=== PATIENT | female | born 1945 | race Caucasian/White ===

== ENCOUNTER 2017-12-16 11:04 | Outpatient (CLI) | payer MEDICARE, BC ==
[~2017-12-16] VITALS: Ht 172.7 cm; Wt 86.4 kg
--- NOTE | ~2017-12-16 | HEMODYNAMI ---
PATIENT:CASTILLO TOVAR MEDICAL RECORD: [id number] : 47 LOCATION:[facility] ADMISSION DATE: 12/16/17 Generatedon:12/16/201713:34 Patient name: CASTILLO TOVAR Patient #: [id number] SSN: DO B: 1945 Date of study: 12/16/2017 Page: Of Hemodynamic Procedure Report Patient Data Patient Demographics Procedure consent was obtained First Name: CASTILLO Gender: Female Last Name: [place] : 1945 Middle Initial: B Age: 72 year(s) Patient #: [id number] Race: Unknown Additional ID: [id number] Contact details [address]: [address] [place] [address] State: [place] City: [place] Zip code: [address] Past Medical History Allergies Allergen Reaction Date Comments Reported Other allergy 12/16/2017 PCN Admission Admission Data Admission Date: 12/16/2017 Admission Time: 11:04 Height (in.): 69 BSA: 1.97 (m2) Height (cm.): 175.26 BMI: 26.43 (kg/m2) Weight (lbs.): 179 Weight (kg.): 81.19 Procedure Procedure Types Cath Procedure Diagnostic Procedure Cardioversion External Procedure Description Procedure Date Procedure Date: 12/16/2017 Procedure Start Time: 13:20 Procedure End Time: 13:29 Procedure Staff Name Function Jed Peace MD Performing Physician Levi Davis MD Additional personnel Fara Kumari RT Monitor Torres Jeffery RN Nurse Tahira Lee RT Monitor Procedure Data Cath Procedure Estimated blood loss: 0 ml Procedure Complications No complications Procedure Medications Medication Administration Route Dosage Oxygen etCO2 Nasal cannula 6 l/min 0.9% NaCl I.V. 100 ml/hr Refer to Anesthesia Notes for Sedation Medications Hemodynamics Rest BSA: 1.97 (m2) O2 Consumption: Estimated: 187.25 (ml/min) O2 Consumption indexed : Estimated:95.05 (ml/min/m) Heart Rate: 78 (bpm) Snapshots Pre Cath Intra NCS Post Cath Vital Signs Time Heart Resp SPO2 etCO2 NIBP (mmHg) Rhythm Pain Sedation Rate (ipm) (%) (mmHg) Status Level (bpm) 12:55:57 91 17 97 27 145/79(130) NSR 0 (11) 10(A) , No pain 13:00:11 89 16 97 37.5 147/98(123) NSR 0 (11) 10(A) , No pain 13:04:23 86 17 96 39 140/98(110) NSR 0 (11) 10(A) , No pain 13:08:36 82 17 97 37.5 138/93(119) NSR 0 (11) 10(A) , No pain 13:12:47 93 17 97 32.2 149/97(116) NSR 0 (11) 10(A) , No pain 13:16:59 96 16 97 40.5 142/94(115) NSR 0 (11) 10(A) , No pain 13:21:13 85 17 97 23.2 141/88(127) NSR 0 (11) 9(A) , No pain 13:25:23 58 16 88 12.7 125/71(99) NSR 0 (11) 9(A) , No pain 13:30:53 68 17 95 30 110/47(98) NSR 0 (11) 9(A) , No pain Medications Time Medication Route Dose Verified Delivered Reason Notes Effective ness by by 13:10:20 Oxygen etCO2 6 Jed Macdonald Per Nasal l/min Kobi Jeffery RN physician cannula 13:10:30 0.9% NaCl I.V. 100 Jeddorie Macdonald Per ml/hr Kobi Jeffery RN physician 13:10:36 Refer to Jed Macdonald Per Anesthesia Kobi Jeffery RN physician Notes for Sedation Medications Procedure Log Time Note 12:46:11 Patient Height : 69 inches 12:46:17 Patient Weight : 179 lbs 12:48:45 Diagnostic Cath status Elective 12:48:48 Torres Jeffery RN sent for patient. Start room use. 12:48:50 Time tracking: Regular hours (M-F 7:00 - 5:00) 12:48:56 Plan of Care:Hemodynamics will remain stable., Cardiac rhythm will remain stable., Comfort level will be maintained., Respiratory function will remain adequate., Patient/ family verbilizes understanding of procedure., Procedure tolerated without complication., Recovers from procedure without complications.. 12:49:09 Patient received from Pre/Post Procedure Room to CCL 3 Alert and oriented. Tansferred to table in Supine position. 12:49:10 Warm blankets applied, and juan j hugger turned on for patient comfort. 12:49:10 Correct patient and procedure confirmed by team. 12:49:12 Signed procedure consent form obtained from patient. 12:49:30 H&P Date Dictated: 12/02/2017 Within 30 days and on chart., H&P Addendum completed by physician on day of procedure. (MUST COMPLETE FOR ALL OUTPATIENTS). 12:49:31 Pre-procedure instructions explained to patient. 12:49:35 Family in waiting room. 12:49:37 Patient NPO since Midnight. 12:49:51 Patient allergic to Other allergyPCN 12:49:56 Is the patient allergic to Iodine/contrast media? No. 12:50:03 Is patient on blood thinner?Yes 12:54:53 Vital chart was started 12:58:22 ACC The patient was administered the following blood thiners within the last 24 hours: ACCAspirin, Eliquis 12:58:24 Patient diabetic? No. 12:58:29 Previous problem with sedation/anesthesia? No ? 12:58:30 Snore? Yes 12:58:32 Sleep apnea? No 12:58:42 Dentures? No ? 12:58:53 IV patent on arrival in left forearm with 0.9% NaCl at KVO. 12:58:59 Lab results completed and on chart. 12:59:06 Alarms reviewed by R. N. 12:59:08 Sharps counted by scrub and verified by R.N. 13:01:01 Sharps counted by scrub and verified by R.N. 13:10:20 Oxygen 6 l/min etCO2 Nasal cannula was administered by Torres Jeffery RN; Per physician; 13:10:30 0.9% NaCl 100 ml/hr I.V. was administered by Torres Jeffery RN; Per physician; 13:10:36 Refer to Anesthesia Notes for Sedation Medications was administered by Torres Jeffery RN; Per physician; 13:16:24 Physician paged 13:16:25 Physician arrived 13:16:26 --------ALL STOP TIME OUT------ 13:16:27 Final Timeout: patient, procedure, and site verified with staff and physician. All members of the team are in agreement. 13:16:37 Physical assessment completed. ASA score P 2 - A patient with mild systemic disease as per Jed Peace MD. 13:16:45 Sedation plan: TIVA Medication:Propofol 13:16:49 Levi Davis MD present and monitoring patient for TIVA. 13:17:12 Quick Combo opened to sterile field. 13:17:15 Quick combo pads placed on patients chest and back. 13:19:02 Baseline sample Acquired. 13:20:27 Procedure started. 13:20:28 Full Disclosure recording started 13:23:20 Defibrillator synced and charged to 200 Joules. 13:23:29 Shock delivered. 13:23:54 Patient cardioverted to sinus rhythm . 13:24:09 Procedure ended.(Physican Out) 13:28:32 Post-procedure physical assessment completed. ASA score P 2 - A patient with mild systemic disease as per Jed Peace MD. 13:28:34 Post procedure rhythm: sinus rhythm 13:28:37 Estimated blood loss: 0 ml 13:28:59 Post procedure instruction explained to patient.Patient verbalizes understanding. 13:29:00 Patient needs reinforcement of post procedure teaching. 13:29:18 Procedure and supply charges have been captured, reviewed, submitted and are correct. 13:29:21 Procedure Complication : No complications 13:29:23 Vital chart was stopped 13:29:25 See physician's report for complete and final results. 13:29:27 Report given to Pre/Post Procedure Room. 13:29:30 Patient transfered to Pre/Post Procedure Room with Bed. 13:29:32 Procedure ended. 13:29:32 Full Disclosure recording stopped 13:29:35 End room use (Document Last) Device Usage Item Manufacture Quantity Catalog Hospital Part Current Minimal Lot# / Name Number Charge Number Stock Stock Azael stearns# Code [employer]ure[employer]or[employer] 1 [id number] Combo Signature Audit [place] Stage Time Signature Unsigned Intra-Procedure 12/16/2017 Tahria Lee 1:34:21 PM RT(R) Signatures Monitor : Fara Quoc Signature : RT Date : Time : Monitor : Tahira Lee Signature : RT Date : Time : [address] [place] [address]
[2017-12-16] MEDS ORDERED: CARTIA XT180 MG PO (12:15)
[2017-12-16] MEDS ORDERED: BETAPACE 80 MG80 MG PO (12:16)
[2017-12-16] MEDS ORDERED: PEPCID20 MG PO (12:16)
[2017-12-16] MEDS ORDERED: ELIQUIS5 MG PO (12:17)
[2017-12-16] MEDS ORDERED: BAYER CHEWABLE81 MG PO (12:17)
[2017-12-16 12:27] VITALS: BP 142/92; Ht 172.7 cm; Wt 86.4 kg
[2017-12-16 13:07] LABS: CALC OSMOLALITY 279 mosm/kg (275-300); CALCIUM 9.4 mg/dL (8.5-10.1); CARBON DIOXIDE 27.4 mmol/L (21.0-32.0); CHLORIDE - SERUM 103 mmol/L (98-107); CREATININE - SERUM 0.7 mg/dL (0.6-1.3); GLUCOSE 95 mg/dL (74-106); POTASSIUM - SERUM 3.5 mmol/L (3.5-5.1); SODIUM 140 mmol/L (136-145); UREA NITROGEN 15 mg/dL (7-18); eGFR NON AFRICAN AMERICAN 87 mL/min (90-120)
[2017-12-16 13:08] LABS: INR 1.2 (0.85-1.17); PROTIME 14.8 SECONDS (11.6-15.0)
[2017-12-16 13:55] LABS: T4 THYROXIN - FREE 1.2 ng/dL (0.76-1.46); THYROID STIMULATING HORMONE 1.42 uIU/mL (0.36-3.74)
[2017-12-16 14:05] LABS: BASOPHILS 0.5 % (0-2); EOSINOPHILS 1.4 % (0-7); HEMATOCRIT 39.6 % (36.0-48.0); HEMOGLOBIN 13.6 g/dL (12-16); IMMATURE GRANULOCYTES 0.1 % (0-5); LYMPHOCYTES 23.6 % (15-50); MCH 29.4 pg (26.0-34.0); MCHC 34.3 g/dL (31.0-37.0); MCV 85.5 fL (80.0-100.0); MEAN PLATELET VOLUME 10.4 fL (7.4-10.4); MONOCYTES 9.4 % (2-11); PLATELET COUNT 311 10x3/uL (130-400); RBC 4.63 10x6/uL (4.00-5.40); RDW 13.5 % (11.5-14.5)
== END 2017-12-16 15:36 ==
LOC: D.CATH 11:04
PROVIDERS: Internal Medicine Cardiovascular Disease
DX: I48.91 Unspecified atrial fibrillation (principal); I10 Essential (primary) hypertension; K21.9 Gastro-esophageal reflux disease without esophagitis; Z01.812 Encounter for preprocedural laboratory examination

== ENCOUNTER 2018-02-04 08:32 | Emergency (ER) | payer OTHER, MEDICARE, BC ==
[~2018-02-04 08:32] MED LIST: BAYER CHEWABLE81 MG PO; BETAPACE 80 MG80 MG PO; CARTIA XT180 MG PO; ELIQUIS5 MG PO; PEPCID20 MG PO
[2018-02-04 08:37] VITALS: BP 173/60; Ht 172.7 cm
[2018-02-04] MEDS ORDERED: CYCLOBENZAPRINE10 MG PO (09:42)
== END 2018-02-04 10:53 | disposition home or self-care (01) ==
LOC: D.ER 08:32
DX: S16.1XXA Strain of muscle, fascia and tendon at neck level, initial encounter (principal); V43.62XA Car passenger injured in collision with other type car in traffic accident, initial encounter; Y93.89 Activity, other specified; Y92.410 Unspecified street and highway as the place of occurrence of the external cause; S40.812A Abrasion of left upper arm, initial encounter; S40.811A Abrasion of right upper arm, initial encounter; I10 Essential (primary) hypertension; K21.9 Gastro-esophageal reflux disease without esophagitis

== ENCOUNTER 2018-04-19 07:54 | Emergency (ER) | payer MEDICARE, BC ==
[~2018-04-19] VITALS: Ht 172.7 cm; Wt 85.5 kg
[~2018-04-19 07:54] MED LIST changes: +CYCLOBENZAPRINE10 MG PO
[2018-04-19 07:59] VITALS: Ht 172.7 cm; Wt 85.5 kg
[2018-04-19] MEDS ORDERED: ACETAMINOPHEN500 M1 PO (10:46)
[2018-04-19] MEDS ORDERED: CYCLOBENZAPRINE10 MG PO (10:46)
[2018-04-19 10:57] VITALS: BP 148/77
== END 2018-04-19 11:05 | disposition home or self-care (01) ==
LOC: D.ER 07:54
DX: S40.011A Contusion of right shoulder, initial encounter (principal); W18.31XA Fall on same level due to stepping on an object, initial encounter; Y93.89 Activity, other specified; Y92.238 Other place in hospital as the place of occurrence of the external cause; M25.511 Pain in right shoulder; I10 Essential (primary) hypertension; I48.91 Unspecified atrial fibrillation

== ENCOUNTER 2018-10-09 18:04 | Outpatient (CLI) | payer MEDICARE, BC ==
[2018-04-19 07:59] VITALS: BMI 28.6
[~2018-10-09 18:04] MED LIST changes: +ACETAMINOPHEN500 M1 PO
== END 2018-10-09 18:06 | disposition home or self-care (01) ==
LOC: D.MAMMO 18:04
PROVIDERS: ATTEND Family Medicine
DX: Z12.31 Encounter for screening mammogram for malignant neoplasm of breast (principal)

== ENCOUNTER 2018-12-19 23:36 | Emergency (ER) | payer MEDICARE, BC ==
[~2018-12-19] VITALS: Ht 172.7 cm; Wt 86.4 kg
[2018-12-19 23:40] VITALS: Ht 172.7 cm; Wt 86.4 kg
[2018-12-20 00:21] LABS: BASOPHILS 0.4 % (0-2); EOSINOPHILS 2.2 % (0-7); HEMATOCRIT 38.3 % (36.0-48.0); HEMOGLOBIN 12.8 g/dL (12-16); IMMATURE GRANULOCYTES 0.3 % (0-5); LYMPHOCYTES 25.4 % (15-50); MCH 29.3 pg (26.0-34.0); MCHC 33.4 g/dL (31.0-37.0); MCV 87.6 fL (80.0-100.0); MEAN PLATELET VOLUME 9.5 fL (7.4-10.4); MONOCYTES 11.4 % (2-11); NEUTROPHILS 60.3 % (40-80); PLATELET COUNT 312 10x3/uL (130-400); RBC 4.37 10x6/uL (4.00-5.40); RDW 13.5 % (11.5-14.5); WBC 9.7 10x3/uL (4.8-10.8)
[2018-12-20 00:29] LABS: ANION GAP 9.2 mmol/L (8-16); CALCIUM 9.2 mg/dL (8.5-10.1); CARBON DIOXIDE 29.4 mmol/L (21.0-32.0); CREATININE - SERUM 0.8 mg/dL (0.6-1.3); POTASSIUM - SERUM 3.6 mmol/L (3.5-5.1)
[2018-12-20 00:36] LABS: APTT 25.8 SECONDS (22.8-39.4); INR 1.05 (0.85-1.17); PROTIME 13.2 SECONDS (11.6-15.0)
[2018-12-20] MEDS ORDERED: ROBAXIN500 MG PO (01:01)
[2018-12-20 01:52] VITALS: BP 172/82
== END 2018-12-20 01:52 | disposition home or self-care (01) ==
LOC: D.ER 23:36
PROVIDERS: Emergency Medicine
DX: S02.2XXA Fracture of nasal bones, initial encounter for closed fracture (principal); W18.30XA Fall on same level, unspecified, initial encounter; Y92.89 Other specified places as the place of occurrence of the external cause; S80.11XA Contusion of right lower leg, initial encounter

== ENCOUNTER 2019-05-29 12:16 | Inpatient (IN) | payer MEDICARE, BC ==
[~2019-05-29] VITALS: Ht 172.7 cm; Wt 72.7 kg
[~2019-05-29 12:16] MED LIST changes: +ROBAXIN500 MG PO
[2019-05-29 13:27] LABS: BASOPHILS 0.3 % (0-2); EOSINOPHILS 1.6 % (0-7); HEMATOCRIT 43.3 % (36.0-48.0); HEMOGLOBIN 13.9 g/dL (12-16); IMMATURE GRANULOCYTES 0.3 % (0-5); LYMPHOCYTES 26.5 % (15-50); MCH 28.8 pg (26.0-34.0); MCHC 32.1 g/dL (31.0-37.0); MCV 89.8 fL (80.0-100.0); MEAN PLATELET VOLUME 9.7 fL (7.4-10.4); MONOCYTES 9.6 % (2-11); NEUTROPHILS 61.7 % (40-80); PLATELET COUNT 402 10x3/uL (130-400); RBC 4.82 10x6/uL (4.00-5.40); RDW 13.5 % (11.5-14.5); WBC 9.3 10x3/uL (4.8-10.8)
[2019-05-29 13:40] LABS: CALC OSMOLALITY 279 mosm/kg (275-300); CALCIUM 9.9 mg/dL (8.5-10.1); CARBON DIOXIDE 29.4 mmol/L (21.0-32.0); CHLORIDE - SERUM 103 mmol/L (98-107); CREATININE - SERUM 0.8 mg/dL (0.6-1.3); GLUCOSE 96 mg/dL (74-106); POTASSIUM - SERUM 3.6 mmol/L (3.5-5.1); SODIUM 139 mmol/L (136-145); UREA NITROGEN 17 mg/dL (7-18); eGFR NON AFRICAN AMERICAN 75 mL/min (90-120)
[2019-05-29 14:03] LABS: ALBUMIN 3.8 g/dL (3.4-5.0); ALKALINE PHOSPHATASE 111 U/L (46-116); ALT (SGPT) 21 U/L (10-68); BILIRUBIN - TOTAL 0.38 mg/dL (0.2-1.3); CKMB 1.9 U/L (0.0-3.6); CREATINE KINASE 91 UL (21-215); PRO BNP 1835 pg/mL (0-125); PROTEIN - SERUM 8.7 g/dL (6.4-8.2); TROPONIN-I < 0.017 ng/mL (0.000-0.060)
[2019-05-29 14:34] VITALS: BP 103/69
[2019-05-29] MEDS ORDERED: NORVASC10 MG PO (16:59)
--- NOTE | 2019-05-29 17:04 | NUR ---
RECIVED FROM ER PER WC TO ROOM 2123. RT AC IV WITH CARDZEM AT 10MG AN HOUR, ADMIT ASSESSMENT PER RN
[2019-05-29 17:13] VITALS: BP 142/78; BMI 24.3
[2019-05-29 20:00] VITALS: BP 116/70
--- NOTE | 2019-05-29 22:29 | NUR ---
INITIAL ROUNDS COMPLETED AT 1910 HRS. PT DENIED ANY DISCOMFORT. ASSESSMENT COMPLETED AT 1950 HRS. VSS. CAF PER CM HR 69. ALERT AND ORIENTED TO PERSON, PLACE AND TIME. LALA. IV TO RAC WITH CARDIZEM AT 10MG/HR (10CC/HR). IV PATENT. LUNGS CTA. PM MED GIVEN. PT CURRENTLY VISITING WITH FAMILY. SR UP X2, CALL LIGHT WITHIN REACH.
--- NOTE | 2019-05-29 23:35 | NUR ---
PT READING A BOOK. DENIES ANY DISCOMFORT. CALL LIGHT WITHIN REACH.
[2019-05-30] VITALS: BP 106/68
--- NOTE | 2019-05-30 02:13 | NUR ---
PT READING A BOOK. NO DISTRESS NOTED. CALL LIGHT WITHIN REACH.
[2019-05-30 04:00] VITALS: BP 102/62
--- NOTE | 2019-05-30 04:28 | NUR ---
PT RESTING WITH EYES CLOSED. RESP EVEN AND REGULAR. SR UP X1, CALL LIGHT WITHIN REACH.
[2019-05-30 05:44] LABS: BASOPHILS 0.6 % (0-2); EOSINOPHILS 3.1 % (0-7); HEMATOCRIT 35.9 % (36.0-48.0); HEMOGLOBIN 11.6 g/dL (12-16); IMMATURE GRANULOCYTES 0.2 % (0-5); LYMPHOCYTES 42.7 % (15-50); MCH 28.9 pg (26.0-34.0); MCHC 32.3 g/dL (31.0-37.0); MCV 89.5 fL (80.0-100.0); MEAN PLATELET VOLUME 9.7 fL (7.4-10.4); MONOCYTES 13.1 % (2-11); NEUTROPHILS 40.3 % (40-80); RBC 4.01 10x6/uL (4.00-5.40); RDW 13.7 % (11.5-14.5)
--- NOTE | 2019-05-30 05:45 | NUR ---
PT AWAKE; DENIES ANY DISCOMFORT. CALL LIGHT WITHIN REACH.
[2019-05-30 06:04] LABS: ANION GAP 10.7 mmol/L (8-16); BILIRUBIN - TOTAL 0.36 mg/dL (0.2-1.3); CALCIUM 8.5 mg/dL (8.5-10.1); CARBON DIOXIDE 27.8 mmol/L (21.0-32.0); CREATININE - SERUM 0.8 mg/dL (0.6-1.3); PLATELET COUNT 319 10x3/uL (130-400); POTASSIUM - SERUM 3.5 mmol/L (3.5-5.1); PROTEIN - SERUM 6.9 g/dL (6.4-8.2); WBC 6.5 10x3/uL (4.8-10.8)
--- NOTE | 2019-05-30 07:00 | NUR ---
RECEIVED REPORT. ASSUMED CARE OF PATIENT. PATIENT SITTING UP IN BED WITH ATTENTION TOWARD THE TELEVISION. CARDIZEM DRIP INFUSING ORDERED. CALL LIGHT WITHIN REACH. NO DISTRESS. DENIES NEEDS.
[2019-05-30 09:04] VITALS: BP 109/61
--- NOTE | 2019-05-30 09:07 | NUR ---
HER FOR AM ROUNDS AND AFTER PATIENT HAS AN ECHO, SHE CAN GO HOME AND WILL RETURN ON SATURDAY FOR CARDIOVERSION.
[2019-05-30 09:10] VITALS: Ht 172.7 cm; Wt 72.7 kg
--- NOTE | 2019-05-30 09:41 | HP ---
PATIENT: CASTILLO TOVAR MEDICAL RECORD: [id number] ACCOUNT: [id number] LOCATION:[address] : 47 ADMISSION DATE: 05/29/19 PCP: LUDWIN URIOSTEGUI MD HISTORY AND PHYSICAL EXAMINATION DATE OF ADMISSION: 05/29/2019 CHIEF COMPLAINT: Tachycardia. HISTORY OF PRESENT ILLNESS: This is a 73-year-old female with a known history of paroxysmal atrial fibrillation requiring cardioversion early last year. She states she has been doing well for a long time and over the last 2-3 days has had increased episodes of tachycardia with rates up to 120. She called Dr. Peace's office and was referred to the ER. She states her heart rate has gotten up to as high as 120. She has an irregularly irregular heart rate. She is admitted for further evaluation of her paroxysmal atrial fibrillation. PAST MEDICAL HISTORY: 1. Paroxysmal atrial fibrillation, followed by Dr. Peace. 2. Hyperlipidemia. 3. Hypertension. PAST SURGICAL HISTORY: D&C. ALLERGIES: PENICILLIN. HOME MEDICATIONS: Include amlodipine 10 mg once a day (has been on that for a couple of months, changing from diltiazem), aspirin 81 mg once a day, Pepcid 40 mg once a day, and sotalol 80 mg twice a day. SOCIAL HISTORY: , retired. HABITS: Never smoked. No alcohol or drugs. FAMILY HISTORY: Father at 69. He had leukemia and lung cancer. Mother at 92 of a stroke. She had an arrhythmia. REVIEW OF SYSTEMS: GENERAL: No major weight changes. HEENT: No particular sinus or allergy problems. RESPIRATORY: No history of asthma or emphysema. No cough, wheeze, shortness of breath. CARDIAC: See above history. GASTROINTESTINAL: Has a little heartburn. GENITOURINARY: No significant problems there. MUSCULOSKELETAL: No significant problems there. NEUROLOGIC: No migraines or seizure activity. PSYCHIATRIC: Denies depression or melancholia. PHYSICAL EXAMINATION: VITAL SIGNS: Temperature 98.1, pulse 74, respirations 18, blood pressure 142/78, and O2 sat 96%. GENERAL: She does not appear in acute distress. She is awake and alert. HEART: Irregularly irregular, but controlled rate. LUNGS: Fairly clear. HISTORY AND PHYSICAL [id number] CASTILLO TOVAR ABDOMEN: Soft. EXTREMITIES: No edema. NEUROLOGIC: Unremarkable. LABORATORY DATA: CBC with a white count of 9300, hemoglobin 13.9, and hematocrit 43.3. Basic metabolic panel is all okay. ProBNP 1835. Troponin less than 0.017. Chest x-ray shows no acute process. EKG showed atrial fibrillation with rate in the low 100s. ASSESSMENT: 1. Atrial fibrillation with rapid ventricular response. 2. History of hypertension. PLAN: She is admitted, placed on telemetry, started on Cardizem drip. Cardiology has been consulted. Other tests or procedures as warranted. We will start Lovenox. TRANSINT:[id number] Voice Confirmation ID: [id number] DOCUMENT ID: [id number] LUDWIN URIOSTEGUI MD at 0941 CC: [id number] DICTATION DATE: 05/29/191745 APPRENTICESHIP TRAINING REPRESENTATIVE: 05/29/192003 ADM IN [facility] [address] [place] [address]
[2019-05-30] MEDS ORDERED: ELIQUIS5 MG PO (09:50)
--- NOTE | 2019-05-30 13:54 | NUR ---
MINING HELPER AT BEDSIDE AT THIS TIME TO COMPLETE ECHO ORDERED THIS AM AND THEN PATIENT CAN DISCHARGE TO HOME.
--- NOTE | 2019-05-30 14:10 | NUR ---
20 GAUGE IV REMOVED FROM RIGHT AC AREA. CATHETER TIP INTACT. NO BLEEDING FROM SITE. 2X2 GAUZE APPLIED AND SECURED WITH TAPE. TOELRTATED IV REMOVAL WELL PT IS BEING DISCHARGED TO HOME.
--- NOTE | 2019-05-30 14:28 | NUR ---
DISCHARGE INSTRUCTIONS PROVIDED TO PATIENT. PT VERBALIZED UNDERSTANDING OF ALL INSTRUCTIONS PROVIDED. PATIENT HAS 5 BOXES OF SAMPLES FROM OF [facility] THAT SHE IS TAKING HOME WITH HER. PATIENT GETTING DRESSED AT THIS TIME.
--- NOTE | 2019-05-30 15:02 | NUR ---
PATIENT LEFT UNIT VIA WHEELCHAIR AT THIS TIME WITH ALL PERSONAL BELONGINGS. PATIENT DISCHARGED TO HOME IN NO DISTRESS.
--- NOTE | 2019-06-03 14:07 | CN ---
PATIENT NAME:CASTILLO KILLIAN MEDICAL RECORD: [id number] : 47 LOCATION:. D.2123 ADMIT DATE: 05/29/19 ACCOUNT: [id number] CONSULTING PHYSICIAN: OMKAR YANES MD REFERRING PHYSICIAN: RONEN DAMON MD DATE OF CONSULTATION: 05/30/2019 DIAGNOSES: 1. Atrial fibrillation. 2. Palpitations. 3. Hypertension. HISTORY OF PRESENT ILLNESS: Ms. Killian presents with palpitations, found to be in atrial fibrillation. She has a history of atrial fibrillation. It was in conjunction with pneumonia in November of 2017. She underwent cardioversion at that time. Has been on sotalol since. She has had no real inciting episode or illness that would cause recurrent atrial fibrillation. She had no chest pain. No chest discomfort. No real shortness of breath. She just felt palpitations. Thought she was back in atrial fibrillation. Presents to the Emergency Room. She is back in atrial fibrillation. Her rate is controlled in the 70s and 80s, on her sotalol. PHYSICAL EXAMINATION: CONSTITUTIONAL/GENERAL APPEARANCE: Well nourished, well developed, appears stated age. EYES: Lids and conjunctivae noninjected. No discharge. No pallor. ENT: Lips within normal limit. No cyanosis. No pallor. NECK: Carotid arteries, bilateral normal upstroke. No bruits. No thrills. No jugular venous pressure or distention. CERVICAL LYMPH NODES: Nontender. Nonenlarged. THYROID: Not enlarged. No nodules. CARDIOVASCULAR: Precordial exam, nondisplaced. No heaves or pericardial thrills. Rate and rhythm, regular. Heart sounds, normal S1, normal S2. No S3, no gallop, no rub. Systolic murmur, not heard. Diastolic murmur, not heard. RESPIRATORY: Respiratory effort, unlabored. Normal curvature. No thoracic deformity. No chest wall tenderness. Percussion, resonant. Auscultation, clear. No wheezes, no rales, no rhonchi. ABDOMEN: Soft, nondistended, nontender. No abdominal pain, no vomiting and normal appetite. MUSCULOSKELETAL: No joint tenderness, normal gait, normal tone. SKIN: Warm and dry. OVERALL IMPRESSION: Atrial fibrillation. At this time, we will start her on Eliquis. Can discharge home. We will plan for cardioversion early next week if she remains in atrial fibrillation. TRANSINT:[id number] Voice Confirmation ID: [id number] DOCUMENT ID: [id number] CONSULT REPORT [id number] CASTILLO KILLIAN JEFFREY MD at 1407 CC: [id number] DICTATION DATE: 05/30/19911 CUSTOMER PROGRAM MANAGER: 05/30/19923 DIS IN 05/30/19 [place] [id number]
--- NOTE | 2019-06-03 14:07 | EC ---
PATIENT:CASTILLO TOVAR DATE OF SERVICE: 05/29/19 SEX: F MEDICAL RECORD: [id number] DATE OF : 47 LOCATION:D. D.212 AGE OF PATIENT: 73 ADMISSION DATE: 05/29/19 REFERRING PHYSICIAN: INTERPRETING PHYSICIAN: OMKAR JACKSON MD ECHOCARDIOGRAM REPORT ECHO CHARGES 4 ECHO COMPLETE Date: 05/30/19 CLINICAL DIAGNOSIS: ATRIAL FIB ECHOCARDIOGRAPHIC MEASUREMENTS (adult normal given) AC root (d.<3.7cm) 3.3 cm LV Septum d (<1.2 cm> 1.5 cm Valve Excursion 1.5 cm LV Septum (systole) 1.6 cm Left Atria (s.<4.0cm> 4.0 cm LVPW d(<1.2cm) 1.3 cm RV (d.<2.3cm) 4.0 cm LVPW (sytole) 1.6 cm LV diastole(<5.6CM) 4.9 cm MV E-F(>70mm/sec) cm LV systole 3.5 cm LVOT Diameter 2.0 cm MV exc.(>10mm) 1.5 cm Est.ejection fraction (50-75%) % DOPPLER: LVIT cm/sec A cm/sec E 97.0 cm/sec LA cm/sec RVSP 31 mmHg LVOT 128 cm/sec AOP1/2T m/s Asc. Ao 177 cm/sec RVOT 66 cm/sec RA cm/sec PA 90 cm/sec AV Gradient Peak 12.49mmHg AV Mean 6.47 mmHg AV Area 2.5 cm MV Gradient Peak 5.94 mmHg MV Mean 2.04 mmHg MV Area cm COMMENTS: Mail Distribution Scheme Examiner: Robin RODRIGUEZ Electrician Helper: 1 Dr. Jackson TAPE# PACS Pericardial Effusion N DATE OF SERVICE: 05/30/2019 Echocardiogram FINDINGS: 1. Left ventricular chamber size is within normal limits. Left ventricular systolic function is normal at 55% to 60%. 2. Left atrium is enlarged at 4.0 cm. Right atrium and right ventricular chamber sizes are as well mildly dilated. 3. Valvular structures have normal structure and motion. ECHOCARDIOGRAM REPORT [id number] CASTILLO TOVAR 4. Doppler interrogation reveals mild mitral regurgitation, mild tricuspid regurgitation, no other valvular insufficiency or stenosis. Pulmonary systolic pressure estimated at 31 mmHg. 5. No evidence of pericardial effusion or left ventricular thrombus. TRANSINT:[id number] Voice Confirmation ID: [id number] DOCUMENT ID: [id number] OMKAR JACKSON MD at 1407 CC: [id number] DICTATION DATE: 05/30/19 174 HAND PLEATER: 05/30/192107 DIS IN 05/30/19 [place] [id number] [place] [id number]
== END 2019-05-30 15:00 | disposition home or self-care (01) | DRG 310 ==
LOC: D.ER 12:16 → D.M2 14:38
PROVIDERS: Family Medicine; ADMIT Family Medicine; ATTEND Family Medicine
DX: I48.0 Paroxysmal atrial fibrillation (principal); I10 Essential (primary) hypertension; E78.5 Hyperlipidemia, unspecified

== ENCOUNTER 2019-06-04 10:00 | Outpatient (CLI) | payer MEDICARE, BC ==
[~2019-06-04] VITALS: Ht 172.7 cm; Wt 86.4 kg
--- NOTE | ~2019-06-04 | HEMODYNAMI ---
PATIENT:CASTILLO TOVAR MEDICAL RECORD: [id number] : 47 LOCATION:[facility] ADMISSION DATE: 06/04/19 Generatedon:06/04/201912:18 Patient name: CASTILLO TOVAR Patient #: [id number] SSN: DO B: 1945 Date of study: 06/04/2019 Page: Of Hemodynamic Procedure Report Patient Data Patient Demographics Procedure consent was obtained First Name: CASTILLO Gender: Female Last Name: [place] : 1945 Middle Initial: B Age: 73 year(s) Patient #: [id number] Race: Unknown Additional ID: [id number] Contact details Address: [address] [place] [address] State: [place] City: [place] Zip code: [address] Past Medical History Allergies Allergen Reaction Date Comments Reported Other allergy 12/16/2017 N Admission Admission Data Admission Date: 06/04/2019 Admission Time: 10:00 Lab Results Lab Result Date: 06/04/2019 Lab Result Time: 0:00 Biochemistry Name Units Result Min Max BUN mg/dl 20 --(----)*- 7 18 Creatinine mg/dl 0.8 --(-*--)-- 0.6 1.3 CBC Name Units Result Min Max Hematocrit % 37.3 *-(----)-- 42 54 Hemoglobin g/dl 12.3 *-(----)-- 13.5 17.5 Procedure Procedure Types Cath Procedure Diagnostic Procedure Cardioversion External Procedure Description Procedure Date Procedure Date: 06/04/2019 Procedure Start Time: 12:08 Procedure End Time: 12:14 Procedure Staff Name Function Malcom Jackson MD Performing Physician Tahira Lee RT Monitor Joey Sampson RN Nurse Levi Davis MD Additional personnel Procedure Data Procedure Complications No complications Procedure Medications Medication Administration Route Dosage Refer to Anesthesia Notes for Sedation Medications Hemodynamics Rest Heart Rate: 86 (bpm) Snapshots Pre Cath Intra NCS Post Cath Vital Signs Time Heart Resp SPO2 etCO2 NIBP (mmHg) Rhythm Pain Sedation Rate (ipm) (%) (mmHg) Status Level (bpm) 12:07:03 99 10 98 36.2 122/87(100) A-Fib (Missing) 10(A) 12:10:30 59 17 96 0 98/56(75) NSR (Missing) 9(A) 12:12:40 57 17 99 0 85/39(65) NSR (Missing) 9(A) 12:15:25 58 17 100 14.3 82/47(63) NSR (Missing) 10(A) Medications Time Medication Route Dose Verified Delivered Reason Notes Effectivenes s by by 12:08:39 Refer to Malcom Cook Anesthesia Manuel Sampson RN Notes for Sedation Medications Procedure Log Time Note 11:41:34 Time tracking: Regular hours (M-F 7:00 - 5:00) 11:41:40 Plan of Care:Hemodynamics will remain stable., Cardiac rhythm will remain stable., Comfort level will be maintained., Respiratory function will remain adequate., Patient/ family verbilizes understanding of procedure., Procedure tolerated without complication., Recovers from procedure without complications.. 11:41:43 Procedure Status Elective Heart Cath (OP). 11:50:17 Joey Sampson RN sent for patient. Start room use. 11:53:27 H&P Date Dictated: 06/04/2019 Within 30 days and on chart.. 11:54:23 Lab Result : BUN 20 mg/dl 11:54:23 Lab Result : Creatinine 0.8 mg/dl 11:54:23 Lab Result : Hemoglobin 12.3 g/dl 11:54:23 Lab Result : Hematocrit 37.3 % 11:57:35 Levi Davis MD present and monitoring patient for TIVA. 12:02:28 Patient arrived from Pre/Post Procedure Room to CCL 3. Patient remains on bed/stretcher for procedure. 12:02:35 Signed procedure consent form obtained from patient. 12:02:36 Warm blankets applied, and juan j hugger turned on for patient comfort. 12:02:37 Correct patient and procedure confirmed by team. 12:02:38 ECG and BP/O2 sat monitors applied to patient. 12:06:04 Vital chart was started 12:06:32 Rhythm: atrial fibrillation 12:06:33 Full Disclosure recording started 12:06:37 Baseline sample Acquired. 12:06:41 Pre-procedure instructions explained to patient. 12:06:41 Pre-op teaching completed and patient verbalized understanding. 12:06:43 Family in patients room. 12:06:44 Patient NPO since Midnight. 12:06:48 Is the patient allergic to Iodine/contrast media? No. 12:06:52 Is patient on blood thinner?Yes 12:06:55 ACC The patient was administered the following blood thiners within the last 24 hours: Eliquis 12:06:57 Patient diabetic? No. 12:07:02 Previous problem with sedation/anesthesia? No ? 12:07:05 Snore? No 12:07:06 Sleep apnea? No 12:07:07 Deviated septum? No 12:07:16 Opens mouth fully? Yes 12:07:17 Sticks out tongue? Yes 12:07:20 Airway obstruction? No ? 12:07:23 Dentures? No ? 12:07:29 Patient pain scale 0/10 ?. 12:07:40 IV patent on arrival in left antecubital with 0.9% NaCl at O. 12:07:42 Lab results completed and on chart. 12:07:46 Alarms reviewed by R. N. 12:07:46 Sharps counted by scrub and verified by R.N. 12:07:48 --------ALL STOP TIME OUT------ 12:07:50 Final Timeout: patient, procedure, and site verified with staff and physician. All members of the team are in agreement. 12:07:55 Physical assessment completed. ASA score P 2 - A patient with mild systemic disease as per Malcom Jackson MD. 12:08:00 Sedation plan: TIVA Medication:Propofol 12:08:24 Quick Combo opened to sterile field. 12:08:36 Procedure started. 12:08:38 ------Cardioversion------ 12:08:39 Refer to Anesthesia Notes for Sedation Medications was administered by Joey Sampson RN; ; Verbal order read back and verified. 12:08:51 Quick combo pads placed on patients chest and back. 12:08:53 Defibrillator synced and charged to 275 Joules. 12:08:58 Shock delivered. 12:09:11 Patient cardioverted to sinus rhythm . 12:09:31 Procedure ended.(Physican Out) 12:13:55 Post-procedure physical assessment completed. ASA score P 2 - A patient with mild systemic disease as per Malcom Jackson MD. 12:13:59 Post procedure rhythm: sinus rhythm 12:14:01 Post procedure instruction explained to patient.Patient verbalizes understanding. 12:14:01 Patient needs reinforcement of post procedure teaching. 12:14:15 Procedure and supply charges have been captured, reviewed, submitted and are correct. 12:14:18 Procedure Complication : No complications 12:14:22 Operative report dictated upon procedure completion. 12:14:23 See physician's report for complete and final results. 12:14:24 Report given to Pre/Post Procedure Room. 12:14:27 Patient transfered to Pre/Post Procedure Room with Bed. 12:14:32 Procedure ended. 12:14:32 Full Disclosure recording stopped 12:14:36 End room use (Document Last) 12:17:20 Vital chart was stopped Device Usage Item Manufacture Quantity Catalog Hospital Part Current Minimal Lot# / Name Number Charge Number Stock Stock [facility] al# Code [employer] Trees 1 [id number] Combo Signature Audit Wyarno Stage Time Signature Unsigned Intra-Procedure 06/04/2019 Tahira Lee 12:17:41 PM RT(R) Intra-Procedure 06/04/2019 Joey Sampson RN 12:18:06 PM Intra-Procedure 06/04/2019 Malcom Jackson 12:18:26 [place] [address]
[~2019-06-04 10:00] MED LIST changes: +NORVASC10 MG PO
[2019-06-04 10:31] VITALS: BP 115/65; Ht 172.7 cm; Wt 86.4 kg
[2019-06-04 10:42] LABS: BASOPHILS 0.4 % (0-2); EOSINOPHILS 2.3 % (0-7); HEMATOCRIT 37.3 % (36.0-48.0); HEMOGLOBIN 12.3 g/dL (12-16); IMMATURE GRANULOCYTES 0.3 % (0-5); LYMPHOCYTES 26.7 % (15-50); MEAN PLATELET VOLUME 9.7 fL (7.4-10.4); MONOCYTES 9.6 % (2-11); NEUTROPHILS 60.7 % (40-80); PLATELET COUNT 363 10x3/uL (130-400); RBC 4.24 10x6/uL (4.00-5.40); RDW 13.8 % (11.5-14.5); WBC 7.4 10x3/uL (4.8-10.8)
[2019-06-04 10:50] LABS: ANION GAP 12.3 mmol/L (8-16); CALCIUM 8.8 mg/dL (8.5-10.1); CARBON DIOXIDE 26.6 mmol/L (21.0-32.0); CREATININE - SERUM 0.8 mg/dL (0.6-1.3)
[2019-06-04 10:53] LABS: INR 1.32 (0.85-1.17); PROTIME 15.8 SECONDS (11.6-15.0)
[2019-06-04 10:55] LABS: POTASSIUM - SERUM 3.9 mmol/L (3.5-5.1)
--- NOTE | 2019-06-04 12:20 | NUR ---
PT RECEIVED VIA STRETCHER FROM ASSEMBLER METAL FURNITURE POST SUCCESSFUL CARDIOVERSION. PT AWAKE AND ALERT. PT DENIES PAIN OR DISCOMFORT. PLACED ON CARDIAC MONITORS, O2 SAT 96 ON 2L/NC. IV PATENT INFUSING VIA ORDERS. HR NSR RATE 66, BP 97/50, RR 12. CALL LIGHT IN REACH
--- NOTE | 2019-06-04 12:39 | NUR ---
PT SITTING UP EATING SANDWICH. DENIES PAIN OR DISCOMFORT. HR NSR 73, BP 100/40. CALL LIGHT IN REACH
--- NOTE | 2019-06-04 12:49 | OP ---
PATIENT NAME: CASTILLO TOVAR MEDICAL RECORD: [id number] :47 LOCATION:D.CAT ADMISSION DATE: SURGEON: OMKAR YANES MD DATE OF OPERATION: 06/04/2019 PROCEDURE: DC cardioversion. INDICATION: Atrial fibrillation. PROCEDURE IN DETAIL: IV conscious sedation was performed per anesthesia. Continuous heart rate, O2 saturation, blood pressure monitoring all undertaken, all of which remained stable. She received 1 shock at 275 joules restoring sinus rhythm. OVERALL IMPRESSION: Successful DC cardioversion from atrial fibrillation to sinus rhythm. TRANSINT:[id number] Voice Confirmation ID: [id number] DOCUMENT ID: [id number] OMKAR YANES MD at 1249 CC: [id number] DICTATION DATE: 06/04/19 121 BOILER INSTALLER: 06/04/19 [address] [place] [id number] [place] [address]
--- NOTE | 2019-06-04 13:00 | NUR ---
PT SITTING UP EATING. DENIES PAIN OR DISCOMFORT. HR REMAINS IN SR.
--- NOTE | 2019-06-04 13:23 | NUR ---
DISCHARGE INSTRUCTIONS REVIEWED W PT AND DAUGHTER, BOTH VERBALIZED UNDERSTANDING. IV REMOVED W CATH INTACT. MONITORS AND O2 REMOVED. PT UP TO DRESS FOR DISCHARGE
--- NOTE | 2019-06-04 13:30 | NUR ---
PT DISCHARGED VIA WC TO PRIVATE VEHICLE TO DAUGHTER WAITING.
== END 2019-06-04 13:35 | disposition home or self-care (01) ==
LOC: D.CATH 10:00
PROVIDERS: ATTEND Internal Medicine Interventional Cardiology
DX: I48.91 Unspecified atrial fibrillation (principal)

== ENCOUNTER → 2019-08-10 11:25 | Outpatient (CLI) | payer MEDICARE, BC ==
[2019-06-04 10:31] VITALS: BMI 28.9
== END | disposition home or self-care (01) ==
LOC: D.US 11:25
PROVIDERS: ATTEND Family Medicine
DX: M79.604 Pain in right leg (principal)

== ENCOUNTER 2020-01-12 08:45 | Outpatient (CLI) | payer MEDICARE, BC ==
[2019-06-04 10:31] VITALS: BMI 28.9
== END 2020-01-12 09:45 | disposition home or self-care (01) ==
LOC: D.MAMMO 08:45
PROVIDERS: ATTEND Family Medicine
DX: Z12.31 Encounter for screening mammogram for malignant neoplasm of breast (principal)

== ENCOUNTER → 2021-01-09 09:20 | Outpatient (CLI) | payer MEDICARE, BC ==
[2019-06-04 10:31] VITALS: BMI 28.9
[~2021-01-09 09:20] MED LIST changes: +COZAAR100 MG PO; +FUROSEMIDE20 MG PO; +PROTONIX40 MG PO
== END | disposition home or self-care (01) ==
LOC: D.CT 09:20
PROVIDERS: ATTEND Internal Medicine Gastroenterology
DX: R93.3 Abnormal findings on diagnostic imaging of other parts of digestive tract (principal)

== ENCOUNTER 2021-01-10 21:49 | Inpatient (IN) | payer MEDICARE, BC ==
[~2021-01-10] VITALS: Ht 172.7 cm; Wt 89.8 kg
--- NOTE | ~2021-01-10 | OP ---
PATIENT NAME: CASTILLO KILLIAN MEDICAL RECORD: [id number] :47 LOCATION:D.[id number] ADMISSION DATE:01/10/21 SURGEON: SHIV SALDAÑA MD DATE OF OPERATION: 01/13/2021 PREOPERATIVE DIAGNOSIS: Right humerus fracture. POSTOPERATIVE DIAGNOSIS: Right humerus fracture. PROCEDURE PERFORMED: ORIF right humerus. INDICATIONS: Ms. Killian is a 75-year-old female who fell two days ago and injured her right arm. She sustained a Selby-Rosendo fracture of the distal humerus. She was admitted and preoperative workup was completed. Arrangements were made for her to come to the operating room today. Risks, benefits, and alternatives of surgery were discussed with the patient and consent was obtained. DESCRIPTION OF PROCEDURE: The patient was met in the holding area where her identity and confirmation of procedure was performed. She was then taken to the operating room where anesthesia was administered. She was then positioned in the prone position. Extremities were positioned and padded appropriately. The right upper extremity was allowed to hang at the edge of the bed supported by a bump and arm board in order to allow for positioning of our x-rays. The right upper extremity was prepped and draped in a sterile fashion. The patient received preoperative antibiotics and timeout was performed prior to initiating the case. On initiation of the case, a posterior approach to the humerus was utilized for exposure. We incised through skin and subcutaneous tissues in the posterior midline of the upper arm and then curving laterally near the elbow. I dissected down to the fascia over the triceps and this was then split longitudinally. We continued our dissection along the lateral border of the triceps dissecting down to the intermuscular septum. We began distally and worked our way proximally and were able to identify the radial nerve where it was exiting through the septum. We continued our dissection proximally. We then began elevating the triceps off of the posterior aspect of the humerus beginning distally marking our way up to the radial nerve. We were then able to elevate the triceps and continue releasing proximally and we were able to isolate the radial artery and nerve. These were then tagged with a vessel loop. The fracture hematoma was debrided with a suction and rongeur. The proximal spike of the fracture had actually pierced through between the radial artery and nerve, but did not appear to have injured those structures. It was reduced back down to near the other cortex. With some manipulation, we were then able to obtain a reduction and this was held in place with a large nkreo-aa-wplvr clamp. Images were obtained that confirmed our reduction. Two 2.7 lag screws were placed lateral to medial in order to provide compression at the fracture. Again, our alignment was confirmed under fluoroscopy. We were pleased with our positioning and a 15 hole posterolateral distal humerus plate was then positioned along the posterior lateral cortex of the distal humerus. Once we were pleased with its position, the K-wires were placed to temporarily hold the plate. Again, we confirmed plate positioning under fluoroscopy. We then placed a cortical screw just proximal to our fracture and a second cortical screw just distal to the fracture to secure the plate to the bone. We again was pleased with the fracture position and the plate alignment. We then began placing cortical screws both proximal and distal. Two more cortical screws were placed distally and 3 more OPERATIVE REPORT [id number] CASTILLO KILLIAN cortical screws were placed proximally. The radial nerve transversed the plate between holes 9 and 12. We also placed 3 additional locking screws distally, which helped fixation. Final images were obtained that showed good alignment and fixation of humerus fracture. The wound was irrigated thoroughly with saline. We then reapproximated and closed the triceps fascia with 0 Vicryl suture. Subcutaneous tissues were closed with 2-0 Vicryl and the skin was closed with manfred. Sterile dressing was placed. The patient was turned back over to anesthesia where she was repositioned, awakened, and extubated. She was taken to the recovery room in stable condition. POSTOPERATIVE PLAN: The patient is going to return to the floor for continued postoperative care. She received 24 hours postoperative antibiotics and be started on deep vein thrombosis prophylaxis tomorrow. Physical therapy will be consulted to assist with mobilization. Nonweightbearing right upper extremity, but she can come out of her sling to perform elbow range of motion. She will likely return home with her family upon discharge. COMPLICATIONS: None. ESTIMATED BLOOD LOSS: 100 mL. ANESTHESIA: General with peripheral nerve block. TRANSINT:[id number] Voice Confirmation ID: [id number] DOCUMENT ID: [id number] SHIV SALDAÑA MD CC: [id number] DICTATION DATE: 01/13/211745 HOME DECORATOR: 01/13/212038 ADM IN [facility] [address] [place] [address]
[~2021-01-10 21:49] MED LIST changes: -COZAAR100 MG PO; -FUROSEMIDE20 MG PO; -PROTONIX40 MG PO
[2021-01-10] MEDS ORDERED: PROTONIX40 MG PO (22:05)
[2021-01-10] MEDS ORDERED: FUROSEMIDE20 MG PO (22:06)
[2021-01-10] MEDS ORDERED: COZAAR100 MG PO (22:06)
--- NOTE | 2021-01-10 22:24 | NUR ---
XRAY IN ROOM
[2021-01-10 23:00] VITALS: BP 139/87
[2021-01-11] VITALS: BP 140/95
--- NOTE | 2021-01-11 01:03 | NUR ---
REPORT RECEIVED BY HARISH SANTOS. PT IS IN FOWLERS POSITION, RESPIRATIONS EVEN AND NON-LABORED. CALL LIGHT WITHIN REACH. PT DENIES NEED FOR PAIN MEDICATION. EDUCATED PT ON USE OF CALL LIGHT WHEN SHE IS IN NEED OF PAIN MEDICATION, VERBALIZES UNDERSTANDING.
--- NOTE | 2021-01-11 04:35 | NUR ---
SLING APPLIED TO RIGHT ARM. PT AMBULATED TO RESTROOM X1 ASSIST WITH STEADY GAIT. PT THEN PLACED IN HOSPITAL BED FOR COMFORT.
[2021-01-11 05:00] VITALS: BP 150/72
--- NOTE | 2021-01-11 05:00 | NUR ---
22 G TO LEFT HAND DISCONTINUED AT THIS TIME D/T INFILTRATION AND PAIN. CATHETER INTACT AND DRESSING APPLIED.
[2021-01-11 05:23] LABS: BASOPHILS 0.8 % (0-2); EOSINOPHILS 1.2 % (0-7); HEMOGLOBIN 11.8 g/dL (12-16); LYMPHOCYTES 19.8 % (15-50); MCH 28.8 pg (26.0-34.0); MCHC 33.7 g/dL (31.0-37.0); MCV 85.7 fL (80.0-100.0); MEAN PLATELET VOLUME 8.6 fL (7.4-10.4); MONOCYTES 9.6 % (2-11); NEUTROPHILS 68.6 % (40-80); PLATELET COUNT 315 10x3/uL (130-400); RBC 4.08 10x6/uL (4.00-5.40); WBC 11.3 10x3/uL (4.8-10.8)
[2021-01-11 05:57] LABS: ALBUMIN 3.1 g/dL (3.4-5.0); ANION GAP 12.7 mmol/L (8-16); BILIRUBIN - TOTAL 0.39 mg/dL (0.2-1.3); CALCIUM 8.6 mg/dL (8.5-10.1); CARBON DIOXIDE 28.6 mmol/L (21.0-32.0); CREATININE - SERUM 0.8 mg/dL (0.6-1.3); POTASSIUM - SERUM 3.3 mmol/L (3.5-5.1); PROTEIN - SERUM 7.4 g/dL (6.4-8.2); THYROID STIMULATING HORMONE 2.07 uIU/mL (0.36-3.74)
--- NOTE | 2021-01-11 06:23 | NUR ---
PT RESTING SUPINE POSITION, NAD NOTED. REMAINS ON CARDIAC MONITORING.
--- NOTE | 2021-01-11 08:36 | NUR ---
DR SALDAÑA AT PTS BEDSIDE AT THIS TIME TO APPLY SPLINT TO PTS RIGHT ARM. PT TOLERATED PROCEDURE WELL.
--- NOTE | 2021-01-11 17:10 | NUR ---
REPORT CALLED TO [facility] REGARDING THE PT, PER [facility] THE ROOM IS STILL DIRTY AND THEY WILL CALL WHEN THE ROOM IS CLEAN.
--- NOTE | 2021-01-11 18:59 | NUR ---
REPORT CALLED TO [facility] AT 1710, INFORMED THAT THE PTS ROOM IS NOT CLEAN AT THIS TIME AND THEY WILL CALL BACK WHEN THE ROOM IS CLEAN.
[2021-01-11 20:00] VITALS: BP 128/78
--- NOTE | 2021-01-11 20:30 | NUR ---
ADMITTED TO ROOM FROM ER ALERT AND ORIENTIATED, RIGHT ARM IN SLING DENIES PAIN AT THIS TIME, SEE ASSESSMENT , CALL LIGHT IN REACH
[2021-01-12] VITALS (8 sets, daily range): BP systolic 86–152; BP diastolic 53–81; BMI 30.1
[2021-01-12 05:14] LABS: BASOPHILS 0.5 % (0-2); EOSINOPHILS 2.4 % (0-7); HEMATOCRIT 30.2 % (36.0-48.0); HEMOGLOBIN 10.4 g/dL (12-16); LYMPHOCYTES 24.3 % (15-50); MCH 29.4 pg (26.0-34.0); MCHC 34.3 g/dL (31.0-37.0); MCV 85.7 fL (80.0-100.0); MONOCYTES 11.8 % (2-11); PLATELET COUNT 264 10x3/uL (130-400); RBC 3.52 10x6/uL (4.00-5.40); RDW 13.6 % (11.5-14.5)
[2021-01-12 05:35] LABS: WBC 7.8 10x3/uL (4.8-10.8)
[2021-01-12 05:41] LABS: ANION GAP 9.9 mmol/L (8-16); CALCIUM 8.3 mg/dL (8.5-10.1); CARBON DIOXIDE 27.4 mmol/L (21.0-32.0); CREATININE - SERUM 0.8 mg/dL (0.6-1.3); POTASSIUM - SERUM 3.3 mmol/L (3.5-5.1)
--- NOTE | 2021-01-12 20:00 | NUR ---
ALERT RESTING IN BED, DENIES NEEDS AT THIS TIME, DAWIT WRAP DRESSING AND SLING IN PLACE TO TO RIGHT ARM, SEE SHIFT ASSESSMENT, CALL LIGHT IN REACH
[2021-01-13] VITALS: BP 124/64
[2021-01-13 04:00] VITALS: BP 145/83
[2021-01-13 06:19] LABS: BASOPHILS 0.5 % (0-2); HEMATOCRIT 29.7 % (36.0-48.0); MCHC 33.8 g/dL (31.0-37.0); MEAN PLATELET VOLUME 8.2 fL (7.4-10.4); MONOCYTES 13.3 % (2-11); NEUTROPHILS 55.2 % (40-80); PLATELET COUNT 262 10x3/uL (130-400); RBC 3.45 10x6/uL (4.00-5.40); RDW 13.6 % (11.5-14.5); WBC 8.8 10x3/uL (4.8-10.8)
[2021-01-13 06:31] LABS: CALC OSMOLALITY 280 mosm/kg (275-300); CALCIUM 8.1 mg/dL (8.5-10.1); CARBON DIOXIDE 30.3 mmol/L (21.0-32.0); CHLORIDE - SERUM 106 mmol/L (98-107); CREATININE - SERUM 0.6 mg/dL (0.6-1.3); GLUCOSE 92 mg/dL (74-106); SODIUM 141 mmol/L (136-145); UREA NITROGEN 12 mg/dL (7-18); eGFR NON AFRICAN AMERICAN > 90 mL/min (90-120)
[2021-01-13 09:41] VITALS: BP 133/54
--- NOTE | 2021-01-13 10:18 | NUR ---
22 GUAGE IV INSERTED INTO L FOREARM X2 STICKS PLACEMENT CHECKED WITH ASPIRATION AND FLUSHED WITH 3ML NORMAL SALINE. SECURED WITH TEGADERM AND TAPE.
[2021-01-13 12:07] VITALS: BP 156/76
[2021-01-13 13:45] VITALS: Ht 172.7 cm; Wt 89.8 kg
[2021-01-13 18:14] VITALS: BP 118/81
[2021-01-13 21:05] VITALS: BP 105/43
[2021-01-14 00:16] VITALS: BP 99/47
[2021-01-14 04:25] VITALS: BP 101/42
[2021-01-14 06:34] LABS: BASOPHILS 0.5 % (0-2); EOSINOPHILS 2.6 % (0-7); HEMATOCRIT 26.7 % (36.0-48.0); HEMOGLOBIN 9.1 g/dL (12-16); LYMPHOCYTES 19.6 % (15-50); MCH 29.3 pg (26.0-34.0); MEAN PLATELET VOLUME 8.2 fL (7.4-10.4); MONOCYTES 11.9 % (2-11); NEUTROPHILS 65.4 % (40-80); PLATELET COUNT 243 10x3/uL (130-400); RBC 3.11 10x6/uL (4.00-5.40); RDW 13.5 % (11.5-14.5); WBC 9.3 10x3/uL (4.8-10.8)
[2021-01-14 06:38] LABS: CALC OSMOLALITY 277 mosm/kg (275-300); CARBON DIOXIDE 26.3 mmol/L (21.0-32.0); CHLORIDE - SERUM 108 mmol/L (98-107); CREATININE - SERUM 0.6 mg/dL (0.6-1.3); GLUCOSE 103 mg/dL (74-106); POTASSIUM - SERUM 3.3 mmol/L (3.5-5.1); SODIUM 140 mmol/L (136-145); UREA NITROGEN 11 mg/dL (7-18); eGFR NON AFRICAN AMERICAN > 90 mL/min (90-120)
[2021-01-14 08:20] VITALS: BP 127/65
--- NOTE | 2021-01-14 08:26 | NUR ---
AWAKE AND ALERT. ORIENTED X3. NO C/O AT THIS TIME. LUNGS ARE CLEAR BILATERALLY, NO COUGH NOTED. USED IS INSTRUCTED. IV TO LEFT FOREARM AND SL TO LEFT AC ARE PATENT WITHOUT REDNESS AT INSERTION SITE. DENIES NEEDS. SLING IN PLACE TO RIGHT ARM. MOVES DIGITS FREELY.
--- NOTE | 2021-01-14 09:30 | NUR ---
ATE MOST OF BREAKFAST. UP TO BR WITH MIN ASSIST OF ONE. VOIDED CLEAR YELLOW URINE WITHOUT DIFFICULTY. TOOK AM MEDS WITHOUT A FUSS. DENIES NEEDS.
--- NOTE | 2021-01-14 12:30 | NUR ---
LUNCH SERVED IN ROOM. FAMILY AT BEDSIDE. DENIES NEEDS.
[2021-01-14] MEDS ORDERED: HYDROCODON-ACE1 EAC7 PO (12:56)
[2021-01-14 13:22] VITALS: BP 123/58
--- NOTE | 2021-01-14 15:00 | NUR ---
DISCHARGED TO HOME WITH FAMILY
--- NOTE | 2021-01-14 19:54 | MORECARE ---
CASE MANAGEMENT DISCHARGE SUMMARY PATIENT: CASTILLO TOVAR UNIT: [id number] ADM DATE: 01/10/21 AGE: 75 : 46 SEX: F ROOM/BED: D.2230 AUTHOR: DELFIN VILLALOBOS PHYSICIAN: REFERRING PHYSICIAN: LUDWIN URIOSTEGUI MD DATE OF SERVICE: 01/14/21 Case Management Discharge Planning Summary COMMENTS ENTERED DATE: 01/14/21 19:49 CT COMMENT TYPE: Discharge Planning REVIEWER: Verona Robbins CM met with patient to complete DC plan and to evaluate needs. Patient lives at home alone and is independent with all ADLs. Patient stated that her home is safe and has electricity and running water. Patient stated that she has no problems paying for medications and she fills her medications at [facility]. Patient stated that her primary care physician is Dr. Uriostegui. At discharge, the patient plans to return home and feels this is a safe discharge. CM discussed availability of home health, rehab services, and medical equipment. Patient declined SNF, IPR, and DME but does wish to receive HH services with [facility]. CM then contacted Javier from [place]. PAULO signed and copy placed in chart. Patient voiced no other needs at this time and is satisfied with DC plan. DC IMM delivered, explained, signed by the patient, and placed in chart. CM will continue to follow and will assist as needed with dc plans/needs. DCP REVIEW SUMMARY ANTICIPATED D/C DATE: 01/14/2021 EXPECTED LOS : 4 CASE STATUS: DCP Complete INITIAL REVIEW: 01/10/2021 INITIAL REVIEWER: Verona Robbisn FINAL DISCHARGE DISPOSITION: : FINAL REVIEWER: FINAL REVIEW DATE: DCP Focus Questions & Answers DCP Screen QUESTION: ANSWER High Risk Factors: : None Walking limitation: Patient stated self rated walking limitation present? : No Age: : 65 - 80 Prior living environment: : Lives Alone Disability ranking: : Grade 1: No significant disability DCP Evaluation QUESTION: ANSWER Patient's ability to cope with chronic illness : a. Adequate (0-3 ED visits in 6 mos., adequate financial resources, attends scheduled appts.) Physical Status: : Independent with ADL's Family / Caregiver's ability to cope with chronic illness: : a. Adequate (ability to meet patient's medical needs, ensures patient attends medical appts.) Living Arrangements: : Home Alone with Support Baseline cognitive status: : *Oriented to person, place, situation, time and present Baseline cognitive status: : Alert Medication Management: : Patient states can afford medications [facility] Does Patient have transportation to get home and to follow-up medical appointments when discharged from the hospital? : Yes Would patient like to participate in any Care Coordination programs (if applicable): : Not applicable Comments: : patient has large support system with friends, family and religious members Does the patient have electricity at home? : Yes Does the patient have running water in their house? : Yes Equipment in use: : None Mental health screen: : No mental health history DCP Re-evaluation QUESTION: ANSWER Would patient like to participate in any Care Coordination programs (if applicable): : Not applicable PATIENT: CASTILLO TOVAR ENCOUNTER: [id number] MEDICAL RECORD#: [id number] ADMISSION DATE: 01/10/2021 DISCHARGE DATE: 01/14/2021 ATTENDING MD: LUDWIN BERNABE : AGE: 75 MARITAL STATUS: W DC PLAN ID: [id number] FACILITY: [facility] PRINTED ON: 01/14/21 19:54 CT All edits/amendments must be made on the electronic document DICTATION DATE: 01/14/211952 SPECIAL NEEDS NANNY: TERESA 01/14/211952 RPT#: [id number] DC DATE:01/14/21 STATUS: DIS IN [facility] [address] [place] [address] END OF REPORT
--- NOTE | 2021-01-17 11:23 | MORECARE ---
CASE MANAGEMENT DISCHARGE SUMMARY PATIENT: CASTILLO TOVAR UNIT: [id number] ADM DATE: 01/10/21 AGE: 75 : 46 SEX: F ROOM/BED: D.2230 AUTHOR: DELFIN VILLALOBOS PHYSICIAN: REFERRING PHYSICIAN: LUDWIN URIOSTEGUI MD DATE OF SERVICE: 01/17/21 Case Management Discharge Planning Summary COMMENTS ENTERED DATE: 01/14/21 19:49 CT COMMENT TYPE: Discharge Planning REVIEWER: Verona Robbins CM met with patient to complete DC plan and to evaluate needs. Patient lives at home alone and is independent with all ADLs. Patient stated that her home is safe and has electricity and running water. Patient stated that she has no problems paying for medications and she fills her medications at [facility]. Patient stated that her primary care physician is Dr. Uriostegui. At discharge, the patient plans to return home and feels this is a safe discharge. CM discussed availability of home health, rehab services, and medical equipment. Patient declined SNF, IPR, and DME but does wish to receive HH services with [facility]. CM then contacted Javier from [place]. PAULO signed and copy placed in chart. Patient voiced no other needs at this time and is satisfied with DC plan. DC IMM delivered, explained, signed by the patient, and placed in chart. CM will continue to follow and will assist as needed with dc plans/needs. DCP REVIEW SUMMARY ANTICIPATED D/C DATE: 01/14/2021 EXPECTED LOS : 4 CASE STATUS: DCP Complete INITIAL REVIEW: 01/10/2021 INITIAL REVIEWER: Verona Robbins FINAL DISCHARGE DISPOSITION: : FINAL REVIEWER: FINAL REVIEW DATE: DCP Focus Questions & Answers DCP Screen QUESTION: ANSWER High Risk Factors: : None Walking limitation: Patient stated self rated walking limitation present? : No Age: : 65 - 80 Prior living environment: : Lives Alone Disability ranking: : Grade 1: No significant disability DCP Evaluation QUESTION: ANSWER Patient's ability to cope with chronic illness : a. Adequate (0-3 ED visits in 6 mos., adequate financial resources, attends scheduled appts.) Family / Caregiver's ability to cope with chronic illness: : a. Adequate (ability to meet patient's medical needs, ensures patient attends medical appts.) Physical Status: : Independent with ADL's Living Arrangements: : Home Alone with Support Baseline cognitive status: : Alert Baseline cognitive status: : *Oriented to person, place, situation, time and present Medication Management: : Patient states can afford medications [facility] Does Patient have transportation to get home and to follow-up medical appointments when discharged from the hospital? : Yes Comments: : patient has large support system with friends, family and caodaism members Would patient like to participate in any Care Coordination programs (if applicable): : Not applicable Does the patient have electricity at home? : Yes Does the patient have running water in their house? : Yes Equipment in use: : None Mental health screen: : No mental health history DCP Re-evaluation QUESTION: ANSWER Would patient like to participate in any Care Coordination programs (if applicable): : Not applicable PATIENT: CASTILLO TOVAR ENCOUNTER: [id number] MEDICAL RECORD#: [id number] ADMISSION DATE: 01/10/2021 DISCHARGE DATE: 01/14/2021 ATTENDING MD: LUDWIN BERNABE : AGE: 75 MARITAL STATUS: W DC PLAN ID: [id number] FACILITY: [facility] PRINTED ON: 01/17/21 11:23 CT All edits/amendments must be made on the electronic document DICTATION DATE: 01/17/211122 RIVET FLUNKY: TERESA 01/17/211122 RPT#: [id number] DC DATE:01/14/21 STATUS: DIS IN [facility] [address] [place] [address] END OF REPORT
== END 2021-01-14 15:00 | disposition home health service (06) | DRG 494 ==
LOC: D.ER 21:49 → D.EDHOLD 23:42 → D.MS 23:42
PROVIDERS: Family Medicine; Orthopaedic Surgery; ADMIT Family Medicine; ATTEND Family Medicine
PROC: 0PSF04Z Reposition Right Humeral Shaft with Internal Fixation Device, Open Approach (ICD-10-PCS; principal; 2021-01-13 12:00)
DX: S42.401A Unspecified fracture of lower end of right humerus, initial encounter for closed fracture (principal); W19.XXXA Unspecified fall, initial encounter; Z91.81 History of falling; I10 Essential (primary) hypertension; I48.91 Unspecified atrial fibrillation; Z79.01 Long term (current) use of anticoagulants